=== PATIENT | female | born 1940 | race Caucasian/White ===

== ENCOUNTER 2019-12-26 12:13 | Emergency (ER) | payer SELFPAY ==
[~2019-12-26] VITALS: Ht 157.4 cm; Wt 68.5 kg
--- NOTE | 2019-12-26 13:08 | Diagnostic Imaging Report ---
INDICATION: Fall with right shoulder pain. TIME OF EXAM: 12:50 PM. TECHNIQUE: Three views of the right shoulder were obtained. FINDINGS: The glenohumeral and acromioclavicular alignment is normal. The acromiohumeral space is normal. No fracture or dislocation is identified. IMPRESSION: No acute bony abnormality is detected. Dictated by: Dictated on workstation # [id number]
--- NOTE | 2019-12-26 13:10 | Diagnostic Imaging Report ---
INDICATION: Fall with right arm injury and pain. TIME OF EXAM: 12:53 PM. TECHNIQUE: Two views of the right forearm were obtained. FINDINGS: The alignment at the elbow and wrist appears normal. The radius and ulna appear to be intact. No definite fracture or dislocation is identified. There is some lucency overlying the distal humerus radial side. This could be overlying soft tissues. If there is pain at the elbow, dedicated elbow films would be recommended. IMPRESSION: No forearm fracture is identified. There is a lucency in the distal humerus, as described, radial side. If there is elbow pain, dedicated elbow radiographs could be obtained. Dictated by: Dictated on workstation # [id number]
--- NOTE | 2019-12-26 13:36 | ED Upper Extremity ---
General Chief Complaint: Upper Extremity Stated Complaint: RT SHOULDER INJ Nursing Triage Note: Patient presents to the ED with c/o of right arm/shoulder pain. She states she was walking to her car on Thursday when she tripped and fell hitting her right arm/shoulder against the door of the garage. On Thursday she states she was unable to move her arm certain ways. When trying she heard it pop. She reports she has continued pain of the right arm/shoulder. Nursing Sepsis Screen: No Definite Risk History of Present Illness Date Seen by Provider: Dec 26, 2019 Time Seen by Provider: 12:20 Initial Comments The patient is a pleasant 79-year-old female who presents for evaluation of right upper arm pain after a fall on Thursday. She states that she tripped and fell against the door of her garage when she was walking to her car. The next day she felt like she was having difficulty moving her arm in certain directions and while she was doing so heard a pop and became concerned. She is having difficulty raising the arm above her head. She denies hitting her head or losing consciousness, neck pain, chest pain or shortness of breath, back pain, dizziness or syncope. She is alert and oriented 4, calm, and appears to be in n o distress at this time. She states that she is not tried taking any pain medications at home but mentions that she has an old prescription for hydrocodone from a knee surgery. Onset: other (Thursday (2 days ago)) Pain/Injury Location: right shoulder, right arm Method of Injury: fell Modifying Factors: Improves With Immobilization (helps), Improves With Movement (makes it worse) Allergies and Home Medications Allergies Coded Allergies: codeine (Verified Allergy, Unknown, 12/26/19) Patient Home Medication List Home Medication List Reviewed: Yes Review of Systems Constitutional: no symptoms reported EENTM: no symptoms reported Respiratory: no symptoms reported Cardiovascular: no symptoms reported Gastrointestinal: no symptoms reported Genitourinary: no symptoms reported Musculoskeletal: other (right upper arm and shoulder pain) Skin: no symptoms reported Psychiatric/Neurological: No Symptoms Reported All Other Systems Reviewed Negative Unless Noted: Yes Past Vbjqoam-Gljunx-Zshddl Hx Past Med/Social Hx: Reviewed Nursing Past Med/Soc Hx Patient Social History Alcohol Use: Denies Use Recreational Drug Use: No Smoking Status: Never a Smoker 2nd Hand Smoke Exposure: No Recent Foreign Travel: No Contact w/Someone Who Travel: No Recent Infectious Disease Expo: No Recent Hopitalizations: No Physical Abuse: No Sexual Abuse: No Mistreated: No Fear: No Immunizations Up To Date Tetanus Booster (TDap): Unknown Seasonal Allergies Seasonal Allergies: No Past Medical History Surgeries: Yes (Bladder suspension, knee arthroscopy) Bladder Surgery, Hysterectomy, Orthopedic Respiratory: No Cardiac: No 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 oz. kg; 27.00 BMI Method: General Appearance: WD/WN, no apparent distress HEENT: PERRL/EOMI, pharynx normal Neck: non-tender, supple Cardiovascular: regular rate, rhythm, no edema, no JVD Respiratory: lungs clear, normal breath sounds, no respiratory distress, no accessory muscle use Back: normal inspection, no CVA tenderness, no vertebral tenderness Shoulder: bone tenderness (over distal right clavicle), soft tissue tenderness (over right biceps) Elbow/Forearm: normal inspection, non-tender, no evidence of injury, normal ROM Wrist: Yes normal inspection, Yes non-tender, Yes no evidence of injury, Yes normal ROM Hand: normal inspection, non-tender, no evidence of injury, normal ROM Neurologic/Tendon: normal sensation, normal motor functions, normal tendon functions, responds to pain Neurologic/Psychiatric: no motor/sensory deficits, alert, normal mood/affect, oriented x 3 Skin: normal color, warm/dry Progress/Results/Core Measures Results/Orders My Orders Orders - CRISTIAN TIRADO DO Shoulder 3 View Right (12/26/19 12:38) Forearm 2 View Right (12/26/19 12:38) Vital Signs/I&O 12/26/19 12:25 Temp 36.1 Pulse 94 Resp 14 B/P (MAP) 179/81 (113) Pulse Ox 96 O2 Delivery Room Air Blood Pressure Mean: 113 Progress Progress Note : Progress Note @1342 - patient updated on all imaging results which are acutely unremarkable. She is not having any tenderness over the right elbow. Her pain is primarily in the right biceps and right distal clavicle regions. She states that she has hydrocodone at home which she can try taking but didn't think of that. I did encourage her to try the medication if she is experiencing significant discomfort. She does not want an additional prescription. Advised the patient to follow up with her orthopedic surgeon in the next 1-2 days and explained that she may require an MRI of the right upper extremity. She expresses verbal understanding and agreement with the plan and is stable for discharge. A sling is been provided for comfort. Diagnostic Imaging Diagonstic Imaging: Xray Comments [facility] [place] NAME: RUY SNIDER [facility] REC#: [id number] PT STATUS: REG ER : 1940 PHYSICIAN: CRISTIAN TIRADO DO ADMIT DATE: 12/26/19/ER FS Draft Date of Exam:12/26/19 SHOULDER 3 VIEW RIGHT INDICATION: Fall with right shoulder pain. TIME OF EXAM: 12:50 PM. TECHNIQUE: Three views of the right shoulder were obtained. FINDINGS: The glenohumeral and acromioclavicular alignment is normal. The acromiohumeral space is normal. No fracture or dislocation is identified. IMPRESSION: No acute bony abnormality is detected. Dictated on workstation # [id number] Dict: 12/26/19 1306 Trans: 12/26/19 1307 [id number] Interpreted by: ALEKS TAPIA MD Electronically signed by: Departure Impression Primary Impression: Injury of right upper arm Additional Impression: Fall Disposition: 01 HOME, SELF-CARE Condition: Stable Departure-Patient Inst. Patient Instructions: How to Use a Shoulder Sling, Contusion (DC), Joint Pain Add. Discharge Instructions: Take your hydrocodone at home for pain relief as needed. Follow-up with your orthopedic doctor in the next 1-2 days. Return to the Emergency Department immediately for new or worsening symptoms. CRISTIAN TIRADO DO Dec 26, 2019 13:36
[2019-12-26 13:51] VITALS: BP 179/81
--- OUTSIDE RECORDS SUMMARY | 2019-12-26 14:07 | XMS REPORT ---
Author Author Kristen CALL Organization [facility] Address [address] [address] Care Team Providers Care Windows 7 Deployment Lead Name Role Phone MARTÍN CALL Unavailable PROBLEMS Type Condition ICD9-CM Code SFQ28-CY Code Onset Dates Condition S tatus SNOMED Code Problem Post menopausal syndrome N95.1 Activ e 475103970 Problem Hypercholesteremia E78.00 Active 1 8276220 Problem Hyperlipidemia, unspecified E78.5 Ac tive 67541519 Problem High cholesterol E78.00 Active 136 73339 Problem Primary insomnia F51.01 Active 397 2004 Problem Hypolipidemia E78.6 Active 141005 007 Problem Interstitial cystitis N30.10 Active 054416603 Problem IBS (irritable bowel syndrome) K58.9 Active 36069439 ALLERGIES No Information ENCOUNTERS Encounter Location Date Diagnosis [place] [id number] [place] [address] Jul, [place] [id number] [place] [address] Jul, [address] [id number] [address] Jul, Thyroid disorder screening Z 13.29 and Hypercholesteremia E78.00 [place] [address] [id number], [place] [address] Jun, [place] [id number] [place] [address] May, [place] [id number] [place] [phone] May, [place] [id number] [place] [address] Mar, [place] [address] [id number], [place] [address] Feb, [facility] [id number] [place] [address] Feb, [place] [address] [facility] [id number] [place] [phone] Jan, [facility] [address] [id number] [place] [address] Jan, Encounter for immunization Z 23 [facility] [address] [id number] [place] [address] 26 Jan, 2019 Thyroid disorder screening Z 13.29 and Well adult on routine health check Z00.00 [place] [address] [place] [id number] [place] [address] 25 Jan, 2019 Hypercholesteremia E78.00 and Thyroid di sorder screening Z13.29 [place] [address] [place] [id number] [place] [address] Dec, Post menopausal syndrome N95.1 [place] [address] [place] [id number] [place] [address] 14 Dec, 2018 [place] [address] [place] [id number] [place] [address] Dec, Pre-op chest exam Z01.811 and Pre-operat sha clearance Z01.818 [place] [address] [place] [id number] [place] [address] Dec, Hyperlipidemia, unspecified E78.5 and Pr e-op exam Z01.818 [place] [address] [place] [id number] [place] [phone] Dec, [place] [address] [place] [id number] [place] [phone] Dec, [facility] [address] [id number] [address] Oct, Acute cystitis with hematuri a N30.01 and Urinary pain R30.9 [place] [address] [id number], [place] [address] Aug, [facility] [address] [id number], [place] [address] Aug, Post menopausal syndrome N95.1 [facility] [address] [id number], [place] [address] Aug, Primary insomnia F51.01 [place] [address] [facility] [id number] [place] [phone] Jul, [facility] [address] [facility] [address] [id number] [place] [address] Jul, High cholesterol E78.00 [place] [address] [facility] [id number] [place] [address] Jul, IBS (irritable bowel syndrome) K58.9 ; H ypolipidemia E78.6 ; Interstitial cystitis N30.10 ; Primary insomnia F51.01 ; Hypercholesteremia E78.00 and Hyperlipidemia, unspecified E78.[address] [id number] [address] Jun, Post menopausal syndrome N95 .1 and Primary insomnia F51.[address] [id number] [place] [address] Jun, Hyperlipidemia, unspecified E78.5 ; Post menopausal syndrome N95.1 ; Primary insomnia F51.01 ; Dermatitis L30.9 and Hypercholesteremia E78.00 IMMUNIZATIONS No Known Immunizations SOCIAL HISTORY Never Assessed REASON FOR VISIT med issue PLAN OF CARE VITAL SIGNS MEDICATIONS Medication Instructions Dosage Frequency Start Date End Date Duration S tatus Temazepam 30 MG Orally Once a day 1 capsule at bedtime as needed 24h 28 days Active RESULTS No Results PROCEDURES No Known procedures INSTRUCTIONS MEDICATIONS ADMINISTERED No Known Medications MEDICAL (GENERAL) HISTORY Type Description Date Medical History irritable bowel syndrome Medical History hyperlipidemia Medical History interstitial cystitis Surgical History hysterectomy Surgical History tonsillectomy Surgical History bladder suspension Surgical History gallbladder removal Surgical History cystoscopy Hospitalization History hysterectomy
--- OUTSIDE RECORDS SUMMARY | 2019-12-26 14:07 | XMS REPORT ---
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 Name Role Phone MARTÍN CALL Unavailable PROBLEMS Type Condition ICD9-CM Code [id number] Code Onset Dates Condition S tatus SNOMED Code Problem Post menopausal syndrome N95.1 Activ e 255532035 Problem Hypercholesteremia E78.00 Active 1 8032600 Problem Hyperlipidemia, unspecified E78.5 Ac tive 34210377 Problem High cholesterol E78.00 Active 136 60471 Problem Primary insomnia F51.01 Active 397 2004 Problem Hypolipidemia E78.6 Active 069407 007 Problem Interstitial cystitis N30.10 Active 116763714 Problem IBS (irritable bowel syndrome) K58.9 Active 77352120 ALLERGIES No Information ENCOUNTERS Encounter Location Date Diagnosis [facility] [address] [place] [address] Oct, Acute cystitis with hematuria N30.01 and Urinary pain R30.9 [place] [address] [place] [address] Aug [place] [address] [place] [address] Aug Post menopausal syndrome N95.1 [place] [address] [place] [address] Aug Primary insomnia F51.01 [place] [address] [place] [address] Jul [place] [address] [place] [address] 14 Jul High cholesterol E78.00 [place] [address] [place] [address] 06 Jul IBS (irritable bowel syndrome) K58.9 ; Hypolipidemia E78.6 ; Interstitial cystitis N30.10 ; Primary insomnia F51.01 ; Hypercholesteremia E78.00 and Hyperlipidemia, unspecified E78.[address] [address] Jun, Post menopausal syndrome N95.1 and Prima ry insomnia F51.[address] [address] Jun, Hyperlipidemia, unspecified E78.5 ; Post menopausal syndrome N95.1 ; Primary insomnia F51.01 ; Dermatitis L30.9 and Hypercholesteremia E78.00 IMMUNIZATIONS No Known Immunizations SOCIAL HISTORY Never Assessed REASON FOR VISIT High Cholesterol PLAN OF CARE Activity Details Follow Up 6 Months Reason: VITAL SIGNS Height 5 2 in 2018-08-05 Weight 141 lbs 2018-08-05 Temperature 98 degrees Fahrenheit 2018-08-05 Heart Rate 82 bpm 2018-08-05 Respiratory Rate 16 2018-08-05 Blood pressure systolic 132 mmHg 2018-08-05 Blood pressure diastolic 86 mmHg 2018-08-05 MEDICATIONS No Known Medications RESULTS No Results PROCEDURES No Known procedures INSTRUCTIONS MEDICATIONS ADMINISTERED No Known Medications MEDICAL (GENERAL) HISTORY Type Description Date Medical History irritable bowel syndrome Medical History hyperlipidemia Medical History interstitial cystitis Surgical History hysterectomy Surgical History tonsillectomy Surgical History bladder suspension Surgical History gallbladder removal Hospitalization History hysterectomy
--- OUTSIDE RECORDS SUMMARY | 2019-12-26 14:07 | XMS REPORT ---
Author Author Kristen CALL Organization [facility] Address [address] [address] Care Team Providers Care Delivery Motorcycle Driver Name Role Phone MARTÍN CALL Unavailable PROBLEMS Type Condition ICD9-CM Code [id number] Code Onset Dates Condition S tatus SNOMED Code Problem Post menopausal syndrome N95.1 Activ e 966654066 Problem Hypercholesteremia E78.00 Active 1 2452712 Problem Hyperlipidemia, unspecified E78.5 Ac tive 97893306 Problem High cholesterol E78.00 Active 136 25876 Problem Primary insomnia F51.01 Active 397 2004 Problem Hypolipidemia E78.6 Active 157669 007 Problem Interstitial cystitis N30.10 Active 327284725 Problem IBS (irritable bowel syndrome) K58.9 Active 10239665 ALLERGIES No Information ENCOUNTERS Encounter Location Date Diagnosis [place] [address] [place] [phone] May, [place] [address] [place] [phone] 9 May, [place] [address] [place] [id number] [place] [phone] 9 Mar, [place] [address] [place] [id number] [place] [phone] 9 Feb, [place] [address] [place] [address] 9 Feb, [place] [address] [place] [address] 9 Jan, [place] [address] [place] [address] Jan, Encounter for immunization Z 23 [address] [place] [address] Jan, Thyroid disorder screening Z 13.29 and Well adult on routine health check Z00.00 [place] [address] [place] [address] 9 Jan, Hypercholesteremia E78.00 and Thyroid disorder screening Z13.29 [place] [address] [place] [phone] 9 Dec, Post menopausal syndrome N95.1 [place] [address] [place] [address] 9 Dec, [place] [address] [place] [address] 9 Dec, Pre-op chest exam Z01.811 and Pre-operative clearance Z01.818 [place] [address] [place] [phone] 9 13 Dec, 2018 Hyperlipidemia, unspecified E78.5 and Pre-op exam Z01.818 [place] [address] [place] [address] 9 Dec, [place] [address] [place] [address] 9 Dec, [facility] [address] [place] [address] Oct, Acute cystitis with hematuri a N30.01 and Urinary pain R30.9 [place] [address] [place] [address] 9 Aug, [place] [address] [place] [address] 9 Aug, Post menopausal syndrome N95.1 [place] [address] [place] [address] 9 Aug, Primary insomnia F51.01 [place] [address] [place] [address] 9 Jul, [place] [address] [place] [address] 9 Jul, High cholesterol E78.00 [place] [address] [id number] [address] Jul, IBS (irritable bowel syndrome) K58.9 ; Hypolipidemia E78.6 ; Interstitial cystitis N30.10 ; Primary insomnia F51.01 ; Hypercholesteremia E78.00 and Hyperlipidemia, unspecified E78.5 [address] [place] [address] Jun, Post menopausal syndrome N95 .1 and Primary insomnia F51.01 [address] [place] [address] Jun, Hyperlipidemia, unspecified E78.5 ; Post menopausal syndrome N95.1 ; Primary insomnia F51.01 ; Dermatitis L30.9 and Hypercholesteremia E78.00 IMMUNIZATIONS No Known Immunizations SOCIAL HISTORY Never Assessed REASON FOR VISIT JLA REVIEW PLAN OF CARE VITAL SIGNS MEDICATIONS Medication Instructions Dosage Frequency Start Date End Date Duration S tatus Remeron 30 mg Orally Once a day 1 tablet at bedtime 24h 30 day(s) Active Ditropan XL 10 MG Orally Once a day 1 tablet 24h 30 day(s) Unknown Topicort 0.25 % Externally Twice a day 1 application to affected area as needed 12h 12 Weeks Unknown SF 5000 Plus 1.1 % as directed U nknown Alprazolam 0.25 MG Orally Twice a day 1 tablet 12h Unknown Elmiron 100 MG Orally 2 in the A.M, 1 at night 1 capsule on an empt y stomach 30 day(s) Unknown Hydrocodone-Acetaminophen 5-325 MG Orally every 6 hrs 1 tablet as need ed 6h Unknown Estradiol 0.5 MG Orally Once a day 1 tablet 24h Jun, 30 day(s) Unknown Vit E-Vit C-Beta Carotene [phone] Orally Once a day 1 tablet 24h 30 day(s) Unknown RESULTS No Results PROCEDURES No Known procedures INSTRUCTIONS MEDICATIONS ADMINISTERED No Known Medications MEDICAL (GENERAL) HISTORY Type Description Date Medical History irritable bowel syndrome Medical History hyperlipidemia Medical History interstitial cystitis Surgical History hysterectomy Surgical History tonsillectomy Surgical History bladder suspension Surgical History gallbladder removal Surgical History cystoscopy Hospitalization History hysterectomy
--- OUTSIDE RECORDS SUMMARY | 2019-12-26 14:07 | XMS REPORT ---
Author Author Kristen CALL Organization [facility] Address [address] [address] Care Team Providers Care Assistant Grocery Name Role Phone MARTÍN CALL Unavailable PROBLEMS Type Condition ICD9-CM Code [id number] Code Onset Dates Condition S tatus SNOMED Code Problem Post menopausal syndrome N95.1 Activ e 070837925 Problem Hypercholesteremia E78.00 Active 1 3291772 Problem Hyperlipidemia, unspecified E78.5 Ac tive 59146902 Problem High cholesterol E78.00 Active 136 83021 Problem Primary insomnia F51.01 Active 397 2004 Problem Hypolipidemia E78.6 Active 660882 007 Problem Interstitial cystitis N30.10 Active 287727128 Problem IBS (irritable bowel syndrome) K58.9 Active 12408049 ALLERGIES Substance Reaction Event Type Date Status Nexium diarrhea Drug Allergy Jul, Active Keflex hives Drug Allergy Jul, Active Celecoxib hives Drug Allergy Jul, Active Sulfamethoxazole rash Drug Allergy Jul, Active Simvastatin muscle cramps Drug Allergy Jul, Active ENCOUNTERS Encounter Location Date Diagnosis [place] [address] [place] [id number] Aug [place] [address] [place] [phone] Aug Post menopausal syndrome N95.[address] [address] Aug Primary insomnia F51.[address] [address] [address] Jul High cholesterol E78.00 [place] [address] [place] [phone] Jul IBS (irritable bowel syndrome) K58.9 ; Hypolipidemia E78.6 ; Interstitial cystitis N30.10 ; Primary insomnia F51.01 ; Hypercholesteremia E78.00 and Hyperlipidemia, unspecified E78.[address] [address] Jun, Post menopausal syndrome N95.1 and Prima ry insomnia F51.[address] [address] Jun, Hyperlipidemia, unspecified E78.5 ; Post menopausal syndrome N95.1 ; Primary insomnia F51.01 ; Dermatitis L30.9 and Hypercholesteremia E78.00 IMMUNIZATIONS No Known Immunizations SOCIAL HISTORY Never Assessed REASON FOR VISIT Establish Care, Needs lab, [place] [facility] PLAN OF CARE Activity Details Follow Up 6 Months Reason:Follow up VITAL SIGNS Height 5 2 in 2018-07-28 Weight 141 lbs 2018-07-28 Temperature 97.5 degrees Fahrenheit 2018-07-28 Heart Rate 76 bpm 2018-07-28 Respiratory Rate 14 2018-07-28 Blood pressure systolic 110 mmHg 2018-07-28 Blood pressure diastolic 60 mmHg 2018-07-28 MEDICATIONS Medication Instructions Dosage Frequency Start Date End Date Duration S tatus Vit E-Vit C-Beta Carotene [phone] Orally Once a day 1 tablet 24h 30 day(s) Active SF 5000 Plus 1.1 % as directed A ctive Topicort 0.25 % Externally Twice a day 1 application to affected area as needed 12h 12 Weeks Active Elmiron 100 MG Orally 2 in the A.M, 1 at night 1 capsule on an empt y stomach 30 day(s) Active Ditropan XL 10 MG Orally Once a day 1 tablet 24h 30 day(s) Not-Taking Estradiol 0.5 MG Orally Once a day 1 tablet 24h Jun, 30 day(s) Active Temazepam 30 MG Orally Once a day 1 capsule at bedtime as needed 24h 28 days Active Alprazolam 0.25 MG Orally Twice a day 1 tablet 12h Active Hydrocodone-Acetaminophen 5-325 MG Orally every 6 hrs 1 tablet as need ed 6h Active RESULTS No Results PROCEDURES Procedure Date Ordered Result Body Site VENIPUNCT, ROUTINE* July 28, 2018 ASSAY OF FREE THYROXINE July 28, 2018 ASSAY THYROID STIM HORMONE July 28, 2018 MANUAL CELL COUNT, EACH July 28, 2018 LIPID PANEL July 28, 2018 COMPREHEN METABOLIC PANEL July 28, 2018 INSTRUCTIONS MEDICATIONS ADMINISTERED No Known Medications MEDICAL (GENERAL) HISTORY Type Description Date Medical History irritable bowel syndrome Medical History hyperlipidemia Medical History interstitial cystitis Surgical History hysterectomy Surgical History tonsillectomy Surgical History bladder suspension Surgical History gallbladder removal Hospitalization History hysterectomy
--- OUTSIDE RECORDS SUMMARY | 2019-12-26 14:07 | XMS REPORT | Continuity of Care Document ---
Author Organization Unknown Address Unknown Phone Unavailable Allergies There is no data. Medications There is no data. Problems There is no data. Procedures There is no data. Results Test Result Range CBC w/MANUAL DIFF - 07/28/18 11:08 WHITE BLOOD CELL COUNT 6.1 Thousand/uL 3 .8-10.8 RED BLOOD CELL COUNT 4.80 Million/uL 3.8 0-5.10 HEMOGLOBIN 14.6 g/dL 11.7-15.5 HEMATOCRIT 42.7 % 35.0-45.0 MCV 89.0 fL 80.0-100.0 MCH 30.4 pg 27.0-33.0 MCHC 34.2 g/dL 32.0-36.0 RDW 12.5 % 11.0-15.0 PLATELET COUNT 291 Thousand/uL 140-400 MPV 9.6 fL 7.5-12.5 ABSOLUTE NEUTROPHILS 3050 cells/uL 1500- 7800 ABSOLUTE MONOCYTES 305 cells/uL 200-950 ABSOLUTE EOSINOPHILS 183 cells/uL 15-500 ABSOLUTE BASOPHILS 61 cells/uL 0-200 NEUTROPHILS 50.0 % NRG LYMPHOCYTES 40.0 % NRG MONOCYTES 5.0 % NRG EOSINOPHILS 3.0 % NRG BASOPHILS 1.0 % NRG ABSOLUTE BAND NEUTROPHILS 61 cells/uL 0- 750 ABSOLUTE LYMPHOCYTES 2440 cells/uL 850-3 900 BAND NEUTROPHILS 1.0 % NRG PLATELET ESTIMATION ADEQUATE ADEQUATE COMMENT(S) NRG CULTURE, URINE - 11/17/18 08:35 CULTURE, URINE, ROUTINE SEE NOTE NRG CBC w/MANUAL DIFF - 02/17/19 09:21 WHITE BLOOD CELL COUNT 6.7 Thousand/uL 3 .8-10.8 RED BLOOD CELL COUNT 5.12 Million/uL 3.8 0-5.10 HEMOGLOBIN 14.9 g/dL 11.7-15.5 HEMATOCRIT 45.5 % 35.0-45.0 MCV 88.9 fL 80.0-100.0 MCH 29.1 pg 27.0-33.0 MCHC 32.7 g/dL 32.0-36.0 RDW 13.8 % 11.0-15.0 PLATELET COUNT 326 Thousand/uL 140-400 MPV 9.6 fL 7.5-12.5 ABSOLUTE NEUTROPHILS 2720 cells/uL 1500- 7800 ABSOLUTE MONOCYTES 395 cells/uL 200-950 ABSOLUTE EOSINOPHILS 134 cells/uL 15-500 ABSOLUTE BASOPHILS 67 cells/uL 0-200 NEUTROPHILS 40.6 % NRG LYMPHOCYTES 50.5 % NRG MONOCYTES 5.9 % NRG EOSINOPHILS 2.0 % NRG BASOPHILS 1.0 % NRG ABSOLUTE LYMPHOCYTES 3384 cells/uL 850-3 900 PLATELET ESTIMATION ADEQUATE ADEQUATE CBC MORPHOLOGY NORMAL COMMENT(S) NRG CBC w/MANUAL DIFF - 08/10/19 10:37 WHITE BLOOD CELL COUNT 6.6 Thousand/uL 3 .8-10.8 RED BLOOD CELL COUNT 5.05 Million/uL 3.8 0-5.10 HEMOGLOBIN 15.2 g/dL 11.7-15.5 HEMATOCRIT 44.8 % 35.0-45.0 MCV 88.7 fL 80.0-100.0 MCH 30.1 pg 27.0-33.0 MCHC 33.9 g/dL 32.0-36.0 RDW 13.6 % 11.0-15.0 PLATELET COUNT 335 Thousand/uL 140-400 MPV 9.6 fL 7.5-12.5 ABSOLUTE NEUTROPHILS 2831 cells/uL 1500- 7800 ABSOLUTE MONOCYTES 607 cells/uL 200-950 ABSOLUTE EOSINOPHILS 0 cells/uL 15-500 ABSOLUTE BASOPHILS 66 cells/uL 0-200 NEUTROPHILS 42.9 % NRG LYMPHOCYTES 46.9 % NRG MONOCYTES 9.2 % NRG EOSINOPHILS 0 % NRG BASOPHILS 1.0 % NRG ABSOLUTE LYMPHOCYTES 3095 cells/uL 850-3 900 PLATELET ESTIMATION ADEQUATE ADEQUATE COMMENT(S) NRG CULTURE, URINE - 11/01/19 11:10 CULTURE, URINE, ROUTINE SEE NOTE NRG Encounters ACCT No. Visit Date/Time Discharge Status Pt. Type Provider Facility Loc./Unit Complaint [id number] 11/01/2019 10:50:00 11/01/2019 23:59: 59 CLS Outpatient MARTÍN CALL [facility] [id number] 11/01/2019 10:50:00 Document Registration [id number] 08/10/2019 10:15:00 Document Registration [id number] 02/17/2019 08:00:00 Document Registration [id number] 11/17/2018 08:10:00 Document Registration [id number] 07/28/2018 10:20:00 Document Registration [id number] 12/26/2019 12:15:00 020 13:51:00 DIS Emergency CELESTINO FOSTER DO Via [facility] ER FS RT SHOULDER INJ
== END 2019-12-26 13:51 | disposition home or self-care (01) ==
LOC: ER FS 12:15
DX: S49.91XA Unspecified injury of right shoulder and upper arm, initial encounter (principal); W01.198A Fall on same level from slipping, tripping and stumbling with subsequent striking against other object, initial encounter
CPT/HCPCS: 73030; 73090; 99283; A4565

== ENCOUNTER 2020-01-15 05:07 | Day surgery (SDC) | payer MEDICARE ==
[~2020-01-15] VITALS: Ht 157.5 cm; Wt 61.4 kg
[2020-01-15] VITALS (9 sets, daily range): BP systolic 110–145; BP diastolic 56–84
[2020-01-15 05:27] LABS: CLARITY,URINE CLOUDY; COLOR,URINE YELLOW
--- NOTE | 2020-01-15 05:32 | ED Abdominal Pain ---
General Chief Complaint: Abdominal/GI Problems Stated Complaint: LOWER ABDOMINAL PAIN Source of Information: Patient Exam Limitations: No Limitations (RENEE MORRISON DO) History of Present Illness Date Seen by Provider: Jan 15, 2020 Time Seen by Provider: 05:26 Initial Comments 79-year-old female presents with abdominal pain. Patient reports that she had some discomfort last night with some mild pain. That throughout the night her pain has significantly worsened. Patient reports her abdominal pain with scattered diffuse wheezes now in the right lower quadrant. She has some nausea but no vomiting currently. She has been having some diarrhea for the last couple weeks. She was evaluated about a week ago with normal workup was waiting stools cultures. Patient is diarrhea started after her about a month ago. She denies any fevers or chills. No cough, shortness of breath, wheezing or urinary symptoms reported. Her last meal was part of a baked potato yesterday evening. She reports that she feels like her mouth is pretty dry. (RENEE MORRISON DO) Allergies and Home Medications Allergies Coded Allergies: Sulfa (Sulfonamide Antibiotics) (Verified Allergy, Intermediate, Hives, 01/15/20) codeine (Verified Allergy, Unknown, 12/26/19) Patient Home Medication List Home Medication List Reviewed: Yes (RENEE MORRISON DO) Review of Systems Review of Systems Constitutional: No chills, No fever; malaise Respiratory: Denies Cough, Denies Shortness of Air Cardiovascular: Denies Chest Pain, Denies Irregular Heart Rate Gastrointestinal: Abdominal Pain, Diarrhea, Nausea; Denies Vomiting Genitourinary: Denies Burning, Denies Frequency Musculoskeletal: no symptoms reported Skin: no symptoms reported Psychiatric/Neurological: Depressed Endocrine: No Symptoms Reported Hematologic/Lymphatic: No Symptoms Reported (RENEE MORRISON DO) Past Ivfnaxm-Lqttqz-Qaxlqd Hx Past Med/Social Hx: Reviewed Nursing Past Med/Soc Hx (RENEE MORRISON DO) Patient Social History 2nd Hand Smoke Exposure: No Recent Foreign Travel: No Contact w/Someone Who Travel: No Recent Hopitalizations: No (RENEE MORRISON DO) Immunizations Up To Date Tetanus Booster (TDap): Unknown (RENEE MORRISON DO) Seasonal Allergies Seasonal Allergies: No (RENEE MORRISON DO) Past Medical History Surgeries: Yes (Bladder suspension, knee arthroscopy) Bladder Surgery, Hysterectomy, Orthopedic Respiratory: No Cardiac: No 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 oz. kg; 27.00 BMI Method: General Appearance: mild distress Neck: full range of motion Respiratory: lungs clear, normal breath sounds Cardiovascular: normal peripheral pulses, regular rate, rhythm Gastrointestinal: guarding, rebound, tenderness (right lower quadrant) Extremities: normal range of motion, non-tender Neurologic/Psychiatric: delivery agent II-XII nml as tested, no motor/sensory deficits, alert, oriented x 3 Skin: normal color, warm/dry (RENEE MORRISON DO) Focused Exam Lactate Level 01/15/20 05:50: Lactic Acid Level 1.25 (ZAINAB THRASHER DO) Lactic Acid Level Laboratory Tests Test 01/15/20 05:50 Lactic Acid Level 1.25 MMOL/L (0.50-2.00) (ZAINAB THRASHER DO) Progress/Results/Core Measures Results/Orders Lab Results Laboratory Tests Test 01/15/20 05:20 01/15/20 05:30 01/15/20 05:50 Range/Units Urine Color YELLOW Urine Clarity CLOUDY Urine pH 6.0 5-9 Urine Specific [place] 1.010 L 1.016-1.022 Urine Protein NEGATIVE NEGATIVE Urine Glucose (UA) NEGATIVE NEGATIVE Urine Ketones 1+ H NEGATIVE Urine Nitrite NEGATIVE NEGATIVE Urine Bilirubin 1+ H NEGATIVE Urine Urobilinogen 0.2 < = 1.0 MG/DL Urine Leukocyte Esterase 3+ H NEGATIVE Urine RBC (Auto) TRACE-I NEGATIVE Urine RBC 2-5 H /HPF Urine WBC >100 H /HPF Urine Squamous Epithelial Cells 10-25 H /HPF Urine Crystals NONE /LPF Urine Bacteria MODERATE H /HPF Urine Casts NONE /LPF Urine Mucus NEGATIVE /LPF Urine Culture Indicated YES White Blood Count 15.5 H 4.3-11.0 10^3/uL Red Blood Count 5.66 4.35-5.85 10^6/uL Hemoglobin 17.1 H 11.5-16.0 G/DL Hematocrit 50 35-52 % Mean Corpuscular Volume 89 80-99 FL Mean Corpuscular Hemoglobin 30 25-34 PG Mean Corpuscular Hemoglobin Concent 34 32-36 G/DL Red Cell Distribution Width 13.7 10.0-14.5 % Platelet Count 411 H 130-400 10^3/uL Mean Platelet Volume 10.1 7.4-10.4 FL Neutrophils (%) (Auto) 76 H 42-75 % Lymphocytes (%) (Auto) 19 12-44 % Monocytes (%) (Auto) 4 0-12 % Eosinophils (%) (Auto) 0 0-10 % Basophils (%) (Auto) 0 0-10 % Neutrophils # (Auto) 11.8 H 1.8-7.8 X 10^3 Lymphocytes # (Auto) 3.0 1.0-4.0 X 10^3 Monocytes # (Auto) 0.6 0.0-1.0 X 10^3 Eosinophils # (Auto) 0.0 0.0-0.3 10^3/uL Basophils # (Auto) 0.0 0.0-0.1 10^3/uL Neutrophils % (Manual) 77 % Lymphocytes % (Manual) 14 % Monocytes % (Manual) 8 % Eosinophils % (Manual) 1 % Toxic Granulation 4+ Platelet Estimate INCREASED Polychromasia SLIGHT Sodium Level 135 135-145 MMOL/L Potassium Level 4.6 3.6-5.0 MMOL/L Chloride Level 97 L 98-107 MMOL/L Carbon Dioxide Level 20 L 21-32 MMOL/L Anion Gap 18 H 5-14 MMOL/L Blood Urea Nitrogen 11 7-18 MG/DL Creatinine 0.99 0.60-1.30 MG/DL Estimat Glomerular Filtration Rate 54 BUN/Creatinine Ratio 11 Glucose Level 155 H 70-105 MG/DL Calcium Level 9.7 8.5-10.1 MG/DL Corrected Calcium 8.5-10.1 MG/DL Total Bilirubin 0.7 0.1-1.0 MG/DL Aspartate Amino Transf (AST/SGOT) 27 5-34 U/L Alanine Aminotransferase (ALT/SGPT) 30 0-55 U/L Alkaline Phosphatase 58 40-136 U/L C-Reactive Protein 13.07 H <0.50 MG/DL Total Protein 7.7 6.4-8.2 GM/DL Albumin 4.4 3.2-4.5 GM/DL Lipase 41 8-78 U/L Smear Scan 1+ LRG PLTS Lactic Acid Level 1.25 0.50-2.00 MMOL/L (ZAINAB THRASHER DO) My Orders Orders - ZAINAB THRASHER DO Ct Abdomen/Pelvis W (01/15/20 05:48) Iohexol Injection (Omnipaque 350 Mg/Ml 1 (01/15/20 06:15) Received Contrast (Hold Metformin- Contr (01/15/20 06:15) Sodium Chloride Flush (Catheter Flush Sy (01/15/20 06:15) Ns (Ivpb) (Sodium Chloride 0.9% Ivpb Bag (01/15/20 06:15) Fentanyl Injection (Sublimaze Injection (01/15/20 07:45) Piperacillin Sodium/Tazobactam (Zosyn Vi (01/15/20 07:45) Lactated Ringers (Lr 1000 Ml Iv Solution (01/15/20 07:45) (ZAINAB THRASHER DO) Medications Given in ED Current Medications Medications Dose Ordered Sig/Jarocho Route Start Time Stop Time Status Last Admin Dose Admin Fentanyl Citrate 50 mcg ONCE ONCE IVP 01/15/20 07:45 01/15/20 07:46 DC 01/15/20 07:40 50 MCG Iohexol 100 ml ONCE ONCE IV 01/15/20 06:15 01/15/20 06:20 DC 01/15/20 06:53 100 ML Ondansetron HCl 4 mg ONCE ONCE IVP 01/15/20 05:45 01/15/20 05:46 DC 01/15/20 05:52 4 MG Sodium Chloride 10 ml NEEDED PRN IV 01/15/20 06:15 01/15/20 06:54 10 ML Sodium Chloride 100 ml ONCE ONCE IV 01/15/20 06:15 01/15/20 06:20 DC 01/15/20 06:54 80 ML (ZAINAB THRASHER DO) Vital Signs/I&O 01/15/20 05:38 Temp 36.4 Pulse 105 Resp 18 B/P (MAP) 157/74 (101) Pulse Ox 94 O2 Delivery Room Air (ZAINAB THRASHER DO) Progress Progress Note : Time: 05:59 Progress Note I assumed care of this patient from Dr. Morrison. Patient is a very pleasant 79 y/o female with PSH significant for laproscopic cholecystectomy, hysterectomy, and oophorectomy with 2 week hx of diarrhea which she describes to have been improving over the last two days. She developed some worsening abdominal pain and distension over the last 24 hours with some nausea. No fever. She was just given 25 mcg of fentanyl and reports her pain to be improving. UA is returned and with pyuria but also contaminated sample. CT scan abd/pelvis ordered and will await that result. Abd exam is mildly distended, TTP and guarded. Vitals stable currently and IVF's running. 07:40: CT scan returned with acute appendicitis w/o perforation or abscess. This is c/w patient's presentation. Discussed the patient with Dr. Escalera who requests ED to ED transfer and he will evaluate the patient in [facility] and take to OR. study hall supervisor notified. Also discussed with Dr. Gonzalez in the ER at [facility] and patient is accepted for transfer/admission. Patient is reassessed and plan of care discussed. Currently requesting additional pain medication which is ordered along with LR at 100 ml/hr and a dose of zosyn. She is agreeable with the plan of care and currently stable. EMS notified of need for transport. (ZAINAB THRASHER DO) Departure Communication (Admissions) Time/Spoke to Admitting Phy: 07:[address] Gonzalez and Dr. Escalera (ZAINAB THRASHER DO) Impression Primary Impression: Acute appendicitis Disposition: 09 ADMITTED INPATIENT Condition: Improved Admissions Decision to Admit Reason: Admit from ER (General) Decision to Admit/Date: Jan 15, 2020 Time/Decision to Admit Time: 07:40 (ZAINAB THRASHER DO) Transfer Method of Transfer: EMS (ZAINAB THRASHER DO) Departure-Patient Inst. Referrals: MARTÍN CALL MD (PCP/Family) Primary Care Physician RENEE MORRISON DO Jan 15, 2020 05:32 ZAINAB THRASHER DO Jan 15, 2020 06:10
[2020-01-15 05:33] LABS: BACTERIA,URINE MODERATE /HPF; BILIRUBIN,URINE 1+ (NEGATIVE); GLUCOSE, URINE (UA) NEGATIVE (NEGATIVE); KETONES,URINE 1+ (NEGATIVE); LEUKOCYTE ESTERASE ,URINE 3+ (NEGATIVE); NITRITE,URINE NEGATIVE (NEGATIVE); PROTEIN,URINE NEGATIVE (NEGATIVE); WBC,URINE >100 /HPF
[2020-01-15] MEDS ORDERED: fentaNYL INJECTION 100 MCG/2 ML AMP IVP STA (05:34)
[2020-01-15] MEDS ORDERED: NS IV 1000 ML 1,000 ML IV STA (05:34)
[2020-01-15] MEDS ORDERED: FAMOTIDINE 20MG/2ML IV (PEPCID) IV STA (05:34)
[2020-01-15 05:41] LABS: HEMATOCRIT 50 % (35-52); HEMOGLOBIN 17.1 G/DL (11.5-16.0); MEAN CORPUSCULAR HEMOGLOBIN 30 PG (25-34); MEAN CORPUSCULAR VOLUME 89 FL (80-99); WHITE BLOOD COUNT 15.5 10^3/uL (4.3-11.0)
[2020-01-15 05:42] LABS: BASOPHILS % (AUTO) 0 % (0-10); EOSINOPHILS % (AUTO) 0 % (0-10); LYMPHOCYTES % (AUTO) 19 % (12-44); MEAN CORPUSCULAR HGB CONC 34 G/DL (32-36); MEAN PLATELET VOLUME 10.1 FL (7.4-10.4); MONOCYTES # (AUTO) 0.6 X 10^3 (0.0-1.0); MONOCYTES % (AUTO) 4 % (0-12); NEUTROPHILS # (AUTO) 11.8 X 10^3 (1.8-7.8); NEUTROPHILS % (AUTO) 76 % (42-75); PLATELET COUNT 411 10^3/uL (130-400); RED CELL DISTRIBUTION WIDTH 13.7 % (10.0-14.5)
[2020-01-15] MEDS ORDERED: ONDANSETRON 4 MG/2 ML (SDV) Z0FRAN IVP ONE (05:45)
[2020-01-15 05:54] LABS: EOSINOPHILS % (MANUAL) 1 %; LYMPHOCYTES % (MANUAL) 14 %; MONOCYTES % (MANUAL) 8 %; NEUTROPHILS % (MANUAL) 77 %; SMEAR SCAN COMMENT 1+ LRG PLTS
[2020-01-15 05:55] LABS: PLATELET ESTIMATE INCREASED; POLYCHROMASIA SLIGHT; TOXIC GRANULATION/VACUOLAZATIO 4+
[2020-01-15 06:00] LABS: ALANINE AMINOTRANSFERASE 30 U/L (0-55); ALBUMIN 4.4 GM/DL (3.2-4.5); ALKALINE PHOSPHATASE 58 U/L (40-136); BILIRUBIN,TOTAL 0.7 MG/DL (0.1-1.0); BUN/CREATININE RATIO 11; CALCIUM 9.7 MG/DL (8.5-10.1); CARBON DIOXIDE 20 MMOL/L (21-32); CHLORIDE 97 MMOL/L (98-107); CREATININE SERUM 0.99 MG/DL (0.60-1.30); GFR ESTIMATED 54; GLUCOSE 155 MG/DL (70-105); LIPASE 41 U/L (8-78); POTASSIUM 4.6 MMOL/L (3.6-5.0); SODIUM 135 MMOL/L (135-145); TOTAL PROTEIN 7.7 GM/DL (6.4-8.2)
[2020-01-15] MEDS ORDERED: IOHEXOL 350 MG/ML 100 ML (OMNIPAQUE 350) VIAL IV ONE (06:15)
[2020-01-15] MEDS ORDERED: NS 100 ML (IVPB) BAG IV ONE (06:15)
[2020-01-15] MEDS ORDERED: HOLD METFORMIN - RECEIVED CONTRAST 20 ML VIAL IV SCH (06:15)
[2020-01-15] MEDS ORDERED: CATHETER FLUSH 10 ML SYR IV PRN (06:15)
--- NOTE | 2020-01-15 07:22 | Diagnostic Imaging Report ---
PROCEDURE: CT abdomen and pelvis with contrast. TECHNIQUE: Multiple contiguous axial images were obtained through the abdomen and pelvis after administration of intravenous contrast. Auto Exposure Controls were utilized during the CT exam to meet ALARA standards for radiation dose reduction. INDICATION: Right lower quadrant abdominal pain. COMPARISON: None FINDINGS: There is atelectasis and scarring in the lung bases. The heart is normal in size. The liver demonstrates no focal lesions, although there does appear to be some fatty infiltration. The spleen appears normal. The pancreas is unremarkable. Cholecystectomy clips are noted. The adrenal glands appear normal. The kidneys demonstrate no acute abnormalities. The bowel loops are nondistended without obstruction. There is an enlarged appendix measuring 10 mm in diameter, which appears to contain a small 4 mm appendicolith. There is moderate surrounding fat stranding and edema. No fluid collections or free air is seen. There is diverticulosis in the sigmoid colon without diverticulitis. A small amount of free fluid is seen in the pelvis. No acute osseous abnormality is seen. IMPRESSION: 1. Acute appendicitis with surrounding edema and fluid, but no fluid collections or free air seen. 2. Colonic diverticulosis without diverticulitis. Dictated by: Dictated on workstation # [id number]
[2020-01-15] MEDS ORDERED: PIPERACILLIN SODIUM/TAZOBACTAM 4.5 GM in NS (IVPB) 100 ML IV ONE (07:45)
[2020-01-15] MEDS ORDERED: LACTATED RINGERS 1,000 ML IV SCH (07:45)
[2020-01-15] MEDS ORDERED: fentaNYL INJECTION 100 MCG/2 ML AMP IVP ONE ×2 (07:45→12:45)
--- NOTE | 2020-01-15 09:20 | NUR ---
Patient in ER bed [address] Escalera notified by food preparation supervisor
[2020-01-15] MEDS ORDERED: BUP/EPI 0.5% 1:200,000 (MARCAINE) 10ML VIAL IJ ONE (09:46)
--- NOTE | 2020-01-15 09:46 | NUR ---
Dr. Escalera here at this time
[2020-01-15] MEDS ORDERED: proPOfol 200 MG/20 ML (DIPRIVAN) VIAL IV ONE (09:52)
[2020-01-15] MEDS ORDERED: LIDOCAINE PF 2% 5 ML (XYLOCAINE) VIAL ONE (09:52)
[2020-01-15] MEDS ORDERED: SEVOFLURANE (ULTANE) 15 ML INHAL SOLN ONE ×9 (09:52→12:14)
[2020-01-15] MEDS ORDERED: fentaNYL INJECTION 100 MCG/2 ML AMP ONE ×2 (09:53→10:35)
[2020-01-15] MEDS ORDERED: LACTATED RINGERS 1,000 ML IV PRN (09:53)
--- NOTE | 2020-01-15 10:05 | History & Physical-Surgical ---
History of Present Illness History of Present Illness Reason for visit/HPI CC: RLQ abd pain seen and evaluated in Ed. Patient is a 79 year old female who woke up with grabbing generalized abdominal pain. Severe pain that then moved to the right lower quadrant. Moving makes pain worse. Pain medication has made slightly better. Constant pain. Has some nausea. Recently been having some loose stools and thought that was why she was having pain. Patient had ct scan that reviewed that is consistent with acute appendicitis. Date of Admission T Date Seen by a Provider: Jan 15, 2020 Time Seen by a Provider: 10:01 I consulted on this patient on 01/15/20 09:59 Attending Physician Kam Escalera DO Admitting Physician Justin Abrams MD Consult Allergies and Home Medications Allergies Coded Allergies: Sulfa (Sulfonamide Antibiotics) (Verified Allergy, Intermediate, Hives, 01/15/20) codeine (Verified Allergy, Unknown, 12/26/19) Patient Home Medication List Home Medication List Reviewed: Yes Past Nttwcua-Ctjfgo-Auqanv Hx Patient Social History Alcohol Use: Denies Use Recreational Drug Use: No Smoking Status: Never a Smoker 2nd Hand Smoke Exposure: No Recent Foreign Travel: No Contact w/Someone Who Travel: No Recent Infectious Disease Expo: No Recent Hopitalizations: No Immunizations Up To Date Tetanus Booster (TDap): Unknown Seasonal Allergies Seasonal Allergies: No Surgeries History of Surgeries: Yes (Bladder suspension, knee arthroscopy) Surgeries: Bladder Surgery, Hysterectomy, Orthopedic Respiratory History of Respiratory Disorde: No Cardiovascular History of Cardiac Disorders: No Neurological History of Neurological Disord: No 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 Genitourinary History of Genitourinary Disor: Yes (Interstitial Cystitis) Musculoskeletal History of Musculoskeletal Dis: No Endocrine History of Endocrine Disorders: No HEENT History of HEENT Disorders: No Cancer History of Cancer: No Psychosocial History of Psychiatric Problem: No Blood Transfusions History of Blood Disorders: No Reviewed Nursing Assessment Reviewed/Agree w Nursing PMH: Yes Family Medical History Significant Family History: No Pertinent Family Hx Review of Systems Constitutional: No chills, No diaphoresis, No fever EENTM: No blurred vision, No double vision Respiratory: No cough, No dyspnea on exertion Cardiovascular: No chest pain, No edema Gastrointestinal: abdominal pain (RLQ), nausea Genitourinary: other (interstistial cystitis) Musculoskeletal: No gout, No joint pain Skin: No change in color, No change in hair/nails Psychiatric/Neurological: Denies Anxiety, Denies Depressed, Denies Emotional Problems All Other Systems Reviewed Negative Unless Noted: Yes (Negative excepted noted.) Physical Exam Vital Signs Vital Signs - First Documented 01/15/20 01/15/20 05:38 08:37 Temp 36.4 Pulse 105 Resp 18 B/P (MAP) 157/74 (101) Pulse Ox 94 O2 Delivery Room Air O2 Flow Rate 2.00 Capillary Refill : Less Than 3 Seconds Height, Weight, BMI Height: '" Weight: lbs. oz. kg; 24.00 BMI Method: General Appearance: No Apparent Distress, WD/WN HEENT: PERRL/EOMI, Normal ENT Inspection Neck: Normal Inspection, Non Tender Respiratory: Chest Non Tender, No Accessory Muscle Use, No Respiratory Distress Cardiovascular: Regular Rate, Rhythm, No Edema Gastrointestinal: Soft; No Distended, No Guarding; Tenderness (rlq) Rectal: Deferred Back: No CVA Tenderness, No Vertebral Tenderness Extremity: Normal Inspection, Normal Range of Motion Neurologic/Psychiatric: Alert, Oriented x3, No Motor/Sensory Deficits, Normal Mood/Affect, curtain stretcher assembler II-XII Norm as Tested Skin: Normal Color, Warm/Dry Lymphatic: No Adenopathy Data Review Labs Laboratory Tests 01/15/20 05:20: Urine Color YELLOW, Urine Clarity CLOUDY, Urine pH 6.0, Urine Specific [place] 1.010L, Urine Protein NEGATIVE, Urine Glucose (UA) NEGATIVE, Urine Ketones 1+H, Urine Nitrite NEGATIVE, Urine Bilirubin 1+H, Urine Urobilinogen 0.2, Urine Leukocyte Esterase 3+H, Urine RBC (Auto) TRACE-I, Urine RBC 2-5H, Urine WBC >100H, Urine Squamous Epithelial Cells 10-25H, Urine Crystals NONE, Urine Bacteria MODERATEH, Urine Casts NONE, Urine Mucus NEGATIVE, Urine Culture Indicated YES 01/15/20 05:30: White Blood Count 15.5H, Red Blood Count 5.66, Hemoglobin 17.1H, Hematocrit 50, Mean Corpuscular Volume 89, Mean Corpuscular Hemoglobin 30, Mean Corpuscular Hemoglobin Concent 34, Red Cell Distribution Width 13.7, Platelet Count 411H, Mean Platelet Volume 10.1, Neutrophils (%) (Auto) 76H, Lymphocytes (%) (Auto) 19, Monocytes (%) (Auto) 4, Eosinophils (%) (Auto) 0, Basophils (%) (Auto) 0, Neutrophils # (Auto) 11.8H, Lymphocytes # (Auto) 3.0, Monocytes # (Auto) 0.6, Eosinophils # (Auto) 0.0, Basophils # (Auto) 0.0, Neutrophils % (Manual) 77, Lymphocytes % (Manual) 14, Monocytes % (Manual) 8, Eosinophils % (Manual) 1, Toxic Granulation 4+, Platelet Estimate INCREASED, Polychromasia SLIGHT, Sodium Level 135, Potassium Level 4.6, Chloride Level 97L, Carbon Dioxide Level 20L, Anion Gap 18H, Blood Urea Nitrogen 11, Creatinine 0.99, Estimat Glomerular Filtration Rate 54, BUN/Creatinine Ratio 11, Glucose Level 155H, Calcium Level 9.7, Corrected Calcium , Total Bilirubin 0.7, Aspartate Amino Transf (AST/SGOT) 27, Alanine Aminotransferase (ALT/SGPT) 30, Alkaline Phosphatase 58, C-Reactive Protein 13.07H, Total Protein 7.7, Albumin 4.4, Lipase 41, Smear Scan 1+ LRG PLTS 01/15/20 05:50: Lactic Acid Level 1.25 Assessment/Plan Assessment/Plan Admission Diagonsis acute appendicitis rlq abd pain Admission Status: Observation Assessment/Plan acute appendicitis rlq abd pain patient discussed risks and benefits of laparoscopic appendectomy all other indicated procedures she understands and wishes to proceed. to or NPO Consent Iv hydration KAM Elizabeth DO Jan 15, 2020 10:05
[2020-01-15] MEDS ORDERED: ONDANSETRON 4 MG/2 ML (SDV) Z0FRAN ONE (10:35)
[2020-01-15] MEDS ORDERED: morphine INJ 10 MG/ML 1ML (SYR OR VIAL) ONE (10:35)
[2020-01-15] MEDS ORDERED: HYDROmorphone 2 MG/ML VIAL (DILAUDID) ONE (10:52)
[2020-01-15] MEDS ORDERED: KETOROLAC 30 MG/ML VIAL ONE ×2 (12:02)
[2020-01-15] MEDS ORDERED: ROCURONIUM 10 MG/ML 5 ML SYRINGE IV ONE (12:03)
[2020-01-15] MEDS ORDERED: NEOSTIGMINE 3 MG/3 ML VIAL ONE (12:14)
[2020-01-15] MEDS ORDERED: GLYCOPYRROLATE 0.2 MG/ML (ROBINUL) 2 ML VIAL ONE (12:14)
[2020-01-15] MEDS ORDERED: morphine INJ 4 MG/ML 1 ML (VIAL/SYRINGE) IVP PRN (12:30)
[2020-01-15] MEDS ORDERED: PIPERACILLIN/TAZOBACTAM (BULK) 4.5 GM in NS (IVPB) 100 ML IV SCH (12:30)
[2020-01-15] MEDS ORDERED: ONDANSETRON 4 MG/2 ML (SDV) Z0FRAN IV PRN (12:30)
--- NOTE | 2020-01-15 12:33 | Progress Note-Post Operative ---
Post-Operative Progess Note Surgeon (s)/Nozzle Tender (s) Surgeon KAM MCCORD DO Nozzle Tender: na Pre-Operative Diagnosis rlq abdominal pain, acute appendicitis Post-Operative Diagnosis acute appendicitis Procedure & Operative Findings Date of Procedure 01/15/20 Procedure Performed/Findings PROCEDURE: Laparoscopic appendectomy. COMPLICATIONS: None. INDICATIONS: The patient is a 79 year old female who has been having right lower quadrant abdominal pain. Patient's exam consistent with appendicitis. I discussed risk and benefits of laparoscopic appendectomy and all indicated procedures with the possibility being a normal appendix. The patient understands the risks and benefits and wishes to proceed. Consent was signed on the chart. DESCRIPTION OF PROCEDURE: The patient was taken to the operating suite, prepped and draped in a sterile fashion. Timeout was performed. Local anesthetic was infiltrated just above the umbilicus and 11-blade scalpel was used to make a skin incision. Cautery was used to dissect down to the fascia and scored. Kochers were used to grasp and elevate it and the abdomen was then entered. A 0 Vicryl was placed in a [id number] fashion for closure at the end of the case. The balloon trocar was inserted into the abdomen and pneumoperitoneum was achieved. Under direct visualization of the laparoscope, a 5 mm trocar was placed in the suprapubic region and a 5 mm trocar was placed in the left lower quadrant. Appendix was located, Significant phlegmon around appendix, small bowel adhered to abdomianal wall and cecum. Small bowel was bluntly mobilized. The base of the appendix was dissected around. Once at the base an Endo-MIMI 2.5 stapler was then fired across the base of the appendix. The mesoappendix was then divided. It was then placed in an Endobag and removed through the 12 mm trocar site. The abdomen was then irrigated and suctioned. No other pathology noted. The abdomen was then desufflated and the trocars were removed. The 0 Vicryl placed at the beginning of the case was then tied closing the 12 mm fascial defect. The skin was then closed using 4-0 Monocryl in a subcuticular fashion. The abdomen was then washed and dried and Skin Affix was placed over the incisions. The patient tolerated the procedure well without any complications and was taken to the recovery room in stable condition. Anesthesia Type general Estimated Blood Loss Estimated blood loss (mL): min Specimens/Packing Specimens Removed appendix KAM MCCORD DO Jan 15, 2020 12:33
[2020-01-15] MEDS ORDERED: ONDANSETRON 4 MG/2 ML (SDV) Z0FRAN IVP PRN (12:45)
--- NOTE | 2020-01-15 13:30 | NUR ---
Patient to floor from PACU. Patient denies any pain or discomofrt at this time. Report from Chuyita ROJAS. Patient family at bedside. Patient oriented to room and call light. Will assume care of patient at this time.
[2020-01-15] MEDS: LACTATED RINGERS 1,000 ML IV SCH ×2 (15:42→22:05)
[2020-01-15] MEDS: PIPERACILLIN/TAZOBACTAM (BULK) 4.5 GM in NS (IVPB) 100 ML IV SCH (17:24)
[2020-01-15] MEDS: HYDROcodone/APAP 5 MG/325 MG (LORTAB) TAB PO PRN ×2 (17:47→21:48)
[2020-01-16] VITALS: BP 140/65
[2020-01-16] MEDS: PIPERACILLIN/TAZOBACTAM (BULK) 4.5 GM in NS (IVPB) 100 ML IV SCH (01:27)
[2020-01-16] MEDS: LACTATED RINGERS 1,000 ML IV SCH (04:50)
[2020-01-16 04:51] VITALS: BP 105/54
--- NOTE | 2020-01-16 07:40 | Progress Note - Surgery ---
LILLIANANDRÉS MED STUDENT 01/16/20 0740: Subjective Date Seen by a Provider: Jan 16, 2020 Time Seen by a Provider: 07:10 Subjective/Events-last exam Pt comfortable sitting up in chair. Says she has been passing gas but no BM currently. Pts pain is much improved and now all she has is soreness from incision sites. Says before surgery she also was experiencing nausea which is improved now. Denies n/v, fever, chills, sob, chest pain. Focused Exam Lactate Level 01/15/20 05:50: Lactic Acid Level 1.25 Objective Exam Vital Signs Date Time Temp Pulse Resp B/P (MAP) Pulse Ox O2 Delivery O2 Flow Rate FiO2 01/16/20 04:51 35.6 65 12 105/54 (71) 96 Room Air 01/16/20 00:00 35.6 71 12 140/65 (90) 95 Room Air 01/15/20 20:00 35.9 76 20 134/63 (86) 94 Room Air 01/15/20 20:00 Room Air 01/15/20 16:00 35.8 70 18 145/62 (89) 95 Room Air 01/15/20 15:23 36.0 72 18 132/60 (84) 94 Room Air 01/15/20 13:40 Room Air 01/15/20 13:30 36.8 20 117/84 (95) 94 Room Air 01/15/20 13:30 Room Air 01/15/20 13:20 20 110/84 (93) 94 Room Air 01/15/20 13:15 Room Air 01/15/20 13:10 20 110/84 (93) 95 Room Air 01/15/20 13:00 20 117/68 (84) 98 OxyMask 3 01/15/20 13:00 OxyMask 3 01/15/20 12:50 20 111/71 (84) 99 OxyMask 6 01/15/20 12:45 OxyMask 5 01/15/20 12:40 20 01/15/20 12:30 OxyMask 5 01/15/20 12:28 36.3 20 118/56 (76) 99 OxyMask 5 01/15/20 12:28 OxyMask 5 01/15/20 10:03 36.7 90 18 133/75 (88) 96 Nasal Cannula 2.00 01/15/20 08:37 36.7 89 16 135/65 (88) 98 Nasal Cannula 2.00 I & O 01/16/20 07:00 Intake Total 2520 ml Output Total 500 ml Balance 2020 ml Capillary Refill : Less Than 3 SecondsLess Than 3 Seconds General Appearance: No Apparent Distress, WD/WN HEENT: PERRL/EOMI, Normal ENT Inspection Neck: Normal Inspection, Non Tender Respiratory: Chest Non Tender, No Accessory Muscle Use, No Respiratory Distress Cardiovascular: Regular Rate, Rhythm, No Edema Gastrointestinal: guarding, rebound, tenderness (right lower quadrant) Extremity: Normal Inspection, Normal Range of Motion Neurologic/Psychiatric: Alert, Oriented x3, No Motor/Sensory Deficits, Normal Mood/Affect, repairer helper II-XII Norm as Tested Skin: Normal Color, Warm/Dry Lymphatic: No Adenopathy Assessment/Plan Assessment/Plan Assessment/Plan appendectomy increase diet repeat labs home today if normal Clinical Quality Measures DVT/VTE Risk/Contraindication: Risk Factor Score Per Nursin RFS Level Per Nursing on Admit: 3=High KAM ESCALERA DO 01/16/20 1007: Subjective Subjective/Events-last exam Feeling much better. Pain controlled. Tolerating diet. Denies n/v fever sweats chills shortness of breath or chest pain. Objective Exam General Appearance: No Apparent Distress, WD/WN HEENT: PERRL/EOMI, Normal ENT Inspection Neck: Normal Inspection, Non Tender Respiratory: Chest Non Tender, No Accessory Muscle Use, No Respiratory Distress Cardiovascular: Regular Rate, Rhythm, No Edema Gastrointestinal: No guarding, No rebound; tenderness (incisional tenderness), other (incision c/d/i no erythema) Extremity: Normal Inspection, Normal Range of Motion Neurologic/Psychiatric: Alert, Oriented x3, No Motor/Sensory Deficits, Normal Mood/Affect Skin: Normal Color, Warm/Dry Lymphatic: No Adenopathy Assessment/Plan Assessment/Plan Assessment/Plan rlq abdominal pain acute appendicitis s/p laparoscopic appendectomy feeling better pain controlled. tolerating diet advance as tolerates okay to oh home today follow up 2 weeks Final Diagnosis rlq abdominal pain acute appendicitis s/p laparoscopic appendectomy Supervisory-Addendum Brief Verification & Attestation Participated in pt care: history, MDM, physical Personally performed: exam, history, MDM, supervision of care Care discussed with: Medical Student Procedures: n/a Results interpretation: Verified all documentation Verification and Attestation of Medical Student E/M Service A medical student performed and documented this service in my presence. I reviewed and verified all information documented by the medical student and made modifications to such information, when appropriate. I personally performed the physical exam and medical decision making. Kam Escalera, Jan 16, 2020,10:09 ANDRÉS SNYDER MED STUDENT Jan 16, 2020 07:40 KAM ESCALERA DO Jan 16, 2020 10:07
[2020-01-16 08:00] VITALS: BP 135/63
[2020-01-16] MEDS ORDERED: DOCU-143 PO (08:40)
[2020-01-16] MEDS ORDERED: HYDR-4226 PO (08:40)
--- NOTE | 2020-01-16 08:44 | Discharge Inst-Simple/Standard ---
Discharge Inst-Standard Discharge Medications New, Converted or Re-Newed RX: RX on Chart Patient Instructions/Follow Up Plan of Care/Instructions/FU: 2 weeks Lali Activity as Tolerated: No Discharge Diet: Regular Diet Other Inst to Patient Follow up Appt: Make appointment for 2 week. Instructions: No lifting greater than 10 pounds. No strenuous activity. May shower in 24 hours, no tub bath or soaking. Use incentive spirometer at home as directed. No Smoking Skin/Wound Care: You have special glue over your incision that will fall off on it's own. Symptoms to Report: Appetite Changes, Extremity Discoloration, Numbness/Tingling, Swelling Increased, Bleeding Excessive, Eyesight Changes, Pain Increased, Urine Color Change, Constipation(Persistent), Fever over 101 degree F, Pain/Pressure in chest, Urinating Difficulty, Cough Up/Vomit Blood, Heart Beat Irreg/Pounding, Pain/Pressure in jaw, Vaginal Bleeding Increase, Cramps in feet or legs, Lightheadedness, Pain/Pressure in shoulder, Diarrhea(Persistent), Memory Changes Suddenly, Questions/Concerns, Weight gain consecutive days, Dizziness/Fainting, Nausea/Vomiting, Shortness of Breath, Weight gain over 2 pounds If questions or concerns contact your physician Or seek help at emergency department. KAM MCCORD DO Jan 16, 2020 08:44
[2020-01-16] MEDS: HYDROcodone/APAP 5 MG/325 MG (LORTAB) TAB PO PRN (09:44)
[2020-01-16 10:15] VITALS: BP 135/63
--- NOTE | 2020-01-16 10:36 | Anesthesia-General Post-Op ---
General Patient Condition Mental Status/LOC: Same as Preop Cardiovascular: Satisfactory Nausea/Vomiting: Absent Respiratory: Satisfactory Pain: Controlled Complications: Absent Post Op Complications Complications None Follow Up Care/Instructions Patient Instructions None needed. Anesthesia/Patient Condition Patient Condition Patient is doing well, no complaints, stable vital signs, no apparent adverse anesthesia problems. No complications reported per nursing. HODAN YIP CRNA Jan 16, 2020 10:36
== END 2020-01-16 10:15 | disposition home or self-care (01) ==
LOC: EDUNIT# 05:07 → ER FS 05:11 → SDC 09:38 → 4TH 13:30 → SDC 01-16 10:15
PROVIDERS: ATTEND Surgery
DX: K35.80 Unspecified acute appendicitis (principal); Z88.2 Allergy status to sulfonamides; Z88.5 Allergy status to narcotic agent; N30.10 Interstitial cystitis (chronic) without hematuria
CPT/HCPCS: 36415; 74177; 80053; 81000; 83605; 83690; 85007; 85027; 86141; 87088

== ENCOUNTER 2020-02-07 08:00 | Emergency (ER) | payer MEDICARE ==
[~2020-02-07] VITALS: Ht 157.5 cm; Wt 63.5 kg
[~2020-02-07 08:00] MED LIST: DOCU-143 PO; HYDR-4226 PO
[2020-02-07] MEDS ORDERED: NS IV 1000 ML 1,000 ML IV SCH (08:45)
[2020-02-07 08:56] LABS: HEMATOCRIT 44 % (35-52); HEMOGLOBIN 14.2 G/DL (11.5-16.0); MEAN CORPUSCULAR HEMOGLOBIN 29 PG (25-34); MEAN CORPUSCULAR HGB CONC 33 G/DL (32-36); MEAN CORPUSCULAR VOLUME 89 FL (80-99); MEAN PLATELET VOLUME 9.7 FL (7.4-10.4); PLATELET COUNT 413 10^3/uL (130-400); WHITE BLOOD COUNT 5.6 10^3/uL (4.3-11.0)
[2020-02-07 08:57] LABS: BASOPHILS % (AUTO) 1 % (0-10); EOSINOPHILS # (AUTO) 0.1 10^3/uL (0.0-0.3); EOSINOPHILS % (AUTO) 1 % (0-10); LYMPHOCYTES # (AUTO) 1.5 X 10^3 (1.0-4.0); LYMPHOCYTES % (AUTO) 27 % (12-44); MONOCYTES # (AUTO) 0.3 X 10^3 (0.0-1.0); MONOCYTES % (AUTO) 6 % (0-12); NEUTROPHILS # (AUTO) 3.6 X 10^3 (1.8-7.8); NEUTROPHILS % (AUTO) 65 % (42-75)
[2020-02-07] MEDS ORDERED: ONDANSETRON 4 MG/2 ML (SDV) Z0FRAN IVP ONE (09:00)
[2020-02-07] MEDS ORDERED: LORazepam INJ 2 MG/ML (ATIVAN) VIAL IVP ONE (09:00)
[2020-02-07 09:18] LABS: BUN/CREATININE RATIO 11; CARBON DIOXIDE 22 MMOL/L (21-32); CHLORIDE 106 MMOL/L (98-107); CREATININE SERUM 0.88 MG/DL (0.60-1.30); GFR ESTIMATED > 60; GLUCOSE 167 MG/DL (70-105); POTASSIUM 3.7 MMOL/L (3.6-5.0); SODIUM 142 MMOL/L (135-145)
[2020-02-07 09:19] LABS: ALANINE AMINOTRANSFERASE 62 U/L (0-55); ALBUMIN 4.1 GM/DL (3.2-4.5); ALKALINE PHOSPHATASE 46 U/L (40-136); BILIRUBIN,TOTAL 0.3 MG/DL (0.1-1.0); CALCIUM 9.1 MG/DL (8.5-10.1); MAGNESIUM 2.1 MG/DL (1.6-2.4); TOTAL PROTEIN 6.9 GM/DL (6.4-8.2)
--- NOTE | 2020-02-07 10:00 | ED Abdominal Pain ---
General Chief Complaint: Abdominal/GI Problems Stated Complaint: DIARRHEA; NAUSEA; ABD PAIN Nursing Triage Note: Patient reports she had her appendix surgically removed 16 days ago, states she improved for a few days after surgery, then began having nausea, vomiting, and diarrhea. She states she saw her PCP and started taking flagyl, states her symptoms worsened further after starting the flagyl. Sepsis Screen: No Definite Risk History of Present Illness Date Seen by Provider: Feb 07, 2020 Time Seen by Provider: 08:30 Initial Comments Patient is a 79-year-old female presents with intermittent abdominal pain with semi-formed stools for the past 3 weeks. Patient reports intermittent nausea for the past 2 months. States she has had a lot of GI upset since her passed early November. Patient had her appendix removed and [place] 2 weeks ago and is currently taking Flagyl for diarrhea as prescribed by her PCP. She denies dizziness lightheadedness, chest pain palpitations, shortness of breath. Denies abdominal pain up with occasional stool or flatus. Denies bloody stools tarry stools. No fever chills or sweats. No other acute symptoms or complaints. Timing/Duration: 3-4 Days Severity/Quality: Moderate Location: Other (sporadic migratory pain) Radiation: No Radiation Activities at Onset: None Associated Symptoms: Denies Symptoms Allergies and Home Medications Allergies Coded Allergies: Sulfa (Sulfonamide Antibiotics) (Verified Allergy, Intermediate, Hives, 01/15/20) Home Medications Docusate Sodium 100 Mg Capsule, 100 MG PO BID Prescribed by: KAM MCCORD on 01/16/20 0840 Hydrocodone/Acetaminophen 1 Each Tablet, 1 TAB PO Q4-6HR Prescribed by: KAM MCCORD on 01/16/20 0840 Patient Home Medication List Home Medication List Reviewed: Yes Review of Systems Review of Systems Constitutional: see HPI EENTM: See HPI Respiratory: See HPI Cardiovascular: See HPI Gastrointestinal: See HPI Genitourinary: See HPI Musculoskeletal: see HPI Skin: see HPI Psychiatric/Neurological: Anxiety, Depressed Endocrine: No Symptoms Reported Past Kttboby-Vatsoa-Vqtfuw Hx Past Med/Social Hx: Reviewed Nursing Past Med/Soc Hx Patient Social History Alcohol Use: Denies Use Recreational Drug Use: No Smoking Status: Never a Smoker 2nd Hand Smoke Exposure: No Recent Foreign Travel: No Contact w/Someone Who Travel: No Recent Infectious Disease Expo: No Recent Hopitalizations: No Physical Abuse: No Sexual Abuse: No Mistreated: No Fear: No Immunizations Up To Date Tetanus Booster (TDap): Unknown Seasonal Allergies Seasonal Allergies: No Past Medical History Surgeries: Yes (Bladder suspension, knee arthroscopy) Bladder Surgery, Hysterectomy, Orthopedic Respiratory: No Currently Using CPAP: No Currently Using BIPAP: No Cardiac: No 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 oz. kg; 25.00 BMI Method: General Appearance: WD/WN, no apparent distress HEENT: PERRL/EOMI, pharynx normal Neck: non-tender, full range of motion, supple, normal inspection Respiratory: lungs clear Cardiovascular: normal peripheral pulses, regular rate, rhythm Gastrointestinal: soft, other (increased bowel sounds) Extremities: normal range of motion, non-tender Back: normal inspection, no CVA tenderness Neurologic/Psychiatric: toeing stockings II-XII nml as tested, no motor/sensory deficits, oriented x 3, other (anxious) Focused Exam Sepsis Stage: Ruled Out Progress/Results/Core Measures Results/Orders Lab Results Laboratory Tests Test 02/07/20 08:45 Range/Units White Blood Count 5.6 4.3-11.0 10^3/uL Red Blood Count 4.90 4.35-5.85 10^6/uL Hemoglobin 14.2 11.5-16.0 G/DL Hematocrit 44 35-52 % Mean Corpuscular Volume 89 80-99 FL Mean Corpuscular Hemoglobin 29 25-34 PG Mean Corpuscular Hemoglobin Concent 33 32-36 G/DL Red Cell Distribution Width 13.7 10.0-14.5 % Platelet Count 413 H 130-400 10^3/uL Mean Platelet Volume 9.7 7.4-10.4 FL Neutrophils (%) (Auto) 65 42-75 % Lymphocytes (%) (Auto) 27 12-44 % Monocytes (%) (Auto) 6 0-12 % Eosinophils (%) (Auto) 1 0-10 % Basophils (%) (Auto) 1 0-10 % Neutrophils # (Auto) 3.6 1.8-7.8 X 10^3 Lymphocytes # (Auto) 1.5 1.0-4.0 X 10^3 Monocytes # (Auto) 0.3 0.0-1.0 X 10^3 Eosinophils # (Auto) 0.1 0.0-0.3 10^3/uL Basophils # (Auto) 0.0 0.0-0.1 10^3/uL Sodium Level 142 135-145 MMOL/L Potassium Level 3.7 3.6-5.0 MMOL/L Chloride Level 106 98-107 MMOL/L Carbon Dioxide Level 22 21-32 MMOL/L Anion Gap 14 5-14 MMOL/L Blood Urea Nitrogen 10 7-18 MG/DL Creatinine 0.88 0.60-1.30 MG/DL Estimat Glomerular Filtration Rate > 60 BUN/Creatinine Ratio 11 Glucose Level 167 H 70-105 MG/DL Calcium Level 9.1 8.5-10.1 MG/DL Corrected Calcium 9.0 8.5-10.1 MG/DL Magnesium Level 2.1 1.6-2.4 MG/DL Total Bilirubin 0.3 0.1-1.0 MG/DL Aspartate Amino Transf (AST/SGOT) 94 H 5-34 U/L Alanine Aminotransferase (ALT/SGPT) 62 H 0-55 U/L Alkaline Phosphatase 46 40-136 U/L Total Protein 6.9 6.4-8.2 GM/DL Albumin 4.1 3.2-4.5 GM/DL My Orders Orders - CHU DXION DO Cbc With Automated Diff (02/07/20 08:38) Comprehensive Metabolic Panel (02/07/20 08:38) Stool Culture (02/07/20 08:38) C Difficile Ag + Toxin A/B. (02/07/20 08:38) Isolation Central Supply Req (02/07/20 08:38) Magnesium (02/07/20 08:38) Ns Iv 1000 Ml (Sodium Chloride 0.9%) (02/07/20 08:45) Ondansetron Injection (Zofran Injectio (02/07/20 09:00) Lorazepam Injection (Ativan Injection) (02/07/20 09:00) Medications Given in ED Current Medications Medications Dose Ordered Sig/Jarocho Route Start Time Stop Time Status Last Admin Dose Admin Lorazepam 0.5 mg ONCE ONCE IVP 02/07/20 09:00 02/07/20 09:01 DC 02/07/20 08:57 0.5 MG Ondansetron HCl 4 mg ONCE ONCE IVP 02/07/20 09:00 02/07/20 09:01 DC 02/07/20 08:55 4 MG Vital Signs/I&O 02/07/20 08:10 Temp 36.6 Pulse 106 Resp 20 B/P (MAP) 187/87 (120) Pulse Ox 97 O2 Delivery Room Air Blood Pressure Mean: 120 Departure Communication (Admissions) Patient with abdominal upset with loose stools but unable to provide stool sample while in the emergency department. Lab work reviewed and reassuring. IV fluid, anxiety medication and nausea medication given with significantly. Will treat supportively and defer further management outpatient providers. Patient has follow-up appointment in general surgeon tomorrow. Impression Primary Impression: Nausea Additional Impression: Obstipation Disposition: HOME, SELF-CARE Condition: Stable Departure-Patient Inst. Decision time for Depature: 10:04 Referrals: MARTÍN CALL MD (PCP/Family) Primary Care Physician Patient Instructions: Nausea and Vomiting, Adult (DC) Add. Discharge Instructions: You were evaluated in the emergency department for nausea, and multiple loose stools. Please continue current antibiotics and take newly prescribed nausea medication as directed. Follow bland diet and follow-up with the general surgeon tomorrow as scheduled and your PCP in one week. Return to the ED if new or worsening symptoms. All discharge instructions reviewed with patient and/or family. Voiced understanding. Scripts Ondansetron (Ondansetron Odt) 4 Mg Tab.rapdis 4 MG PO Q6H, #10 TAB Prov: CHU DIXON DO 02/07/20 CHU DIXON DO Feb 07, 2020 10:00
[2020-02-07] MEDS ORDERED: ONDA4TAB11 PO (10:06)
[2020-02-07 10:42] VITALS: BP 153/68
== END 2020-02-07 10:42 | disposition home or self-care (01) ==
LOC: EDUNIT# 08:00 → ER FS 08:02
DX: R11.0 Nausea (principal); K59.00 Constipation, unspecified; F41.9 Anxiety disorder, unspecified; Z88.2 Allergy status to sulfonamides
CPT/HCPCS: 36415; 80053; 83735; 85025